=== PATIENT | male | born 1965 | race Caucasian/White ===

== ENCOUNTER 2018-05-03 10:33 | Emergency (ER) | payer OTHER, SELFPAY ==
[2018-05-03 10:36] VITALS: BP 123/78; PULSE 97; RESP 17; TEMP 36.9; O2SAT 93; BMI 34.4
--- NOTE | 2018-05-03 11:14 | EKG12_ITS ---
Test Reason : DIZZY Blood Pressure : / mmHG Vent. Rate : 098 BPM Atrial Rate : 098 BPM P-R Int : 144 ms QRS Dur : 098 ms QT Int : 352 ms P-R-T Axes : 011 013 043 degrees QTc Int : 449 ms Normal sinus rhythm Normal ECG Confirmed by KIRSTEN ARDON, CARA ([id number]), acquisition editor GAY ESPINOSA ([id number] on 05/08/2018 9:06:40 AM Referred By: DANNY/ANTOINE Confirmed By:CARA CURTIS MD
[2018-05-03 11:41] LABS: Absolute Neutrophil Count 6.9 X10^3/uL (2.0-7.7); Basophil# 0.03 X10^3/uL; Basophil% 0.3 % (0-1); Eosinophil# 0.21 X10^3/uL; Eosinophils% 2.1 % (0-5); Hematocrit 49.7 % (40-54); Hemoglobin 15.9 g/dl (13.0-16.5); Lymphocyte % 20.8 % (19-41); Mean Corpuscular Hgb 31.3 pg (27.0-32.0); Mean Corpuscular Volume 97.8 fL (80-94); Mean Platelet Vol. 10.5 fl (6.2-12.0); Monocyte# 0.85 X10^3/uL; Monocyte% 8.4 % (0-10); Neutrophil # 6.86 X10^3/uL (2.7-7.7); Neutrophil % 67.7 % (47-70); Platelet Count 246 K/mm3 (150-450); RBC Distribution Width CV 13.4 % (11.6-14.6); RBC Distribution Width SD 48.1 fl (35.1-43.9); Red Blood Count 5.08 M/mm3 (4.6-6.2); White Blood Count 10.1 K/mm3 (4.4-11.0)
[2018-05-03 11:42] LABS: POSITIVE COUNT NO; POSITIVE DIFFERENTIAL NO; POSITIVE MORPHOLOGY NO
--- NOTE | 2018-05-03 11:50 | RAD_ITS ---
STUDY: X-RAY CHEST REASON FOR EXAM: Male, 53 years old. Cough. Weakness/dizziness. TECHNIQUE: PA and lateral views of the chest. COMPARISON: Comparison is made with prior study dated February 03, 2016. FINDINGS: Since prior study, there has been progressive increased interstitial markings at the left lung base suggestive of a either early infiltrate and/or atelectasis superimposed on scarring. Stable appearance of the right lung base. Blunting of the left costophrenic angle. Calcified granulomas. Normal size heart. Normal mediastinum and luis. Normal visualized pulmonary arteries. Normal visualized aortic arch and descending thoracic aorta. There are diffuse degenerative changes of the visualized thoracic spine. Healed left rib fracture. There is no demonstrated abnormality of the visualized soft tissue structures of the upper abdomen. RAD/Chest PA and Lateral IMPRESSION: Progressive increased markings at the left lung base suggestive of either linear atelectasis and/or early infiltrate with blunting of left costophrenic angle. Electronically Signed: Gurvinder Cramer, at 12:30 EST , Service support ,
[2018-05-03 12:00] LABS: Anion Gap 7 (5-15); BUN 13 mg/dL (7-18); BUN/Creat Ratio 13.7 RATIO (10-20); Calcium,Total 8.8 mg/dL (8.5-10.1); Chloride 107 mmol/L (98-107); Creatinine, Serum 0.95 mg/dL (0.70-1.30); EST Glomerular Filtration Rate 87 mL/min (>60); Est Glom Filt Rate - Afr Amer 106 mL/min (>60); Estimated Creatinine Clearance 82.14 ml/min; Glucose 93 mg/dL (74-106); Sodium Level 140 mmol/L (136-145)
[2018-05-03 13:06] VITALS: BP 136/85; PULSE 93; RESP 18; O2SAT 92
[2018-05-03 13:07] VITALS: O2SAT 90
--- NOTE | 2018-05-03 13:13 | ED.VISSUMM ---
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 Went sat down using inhaler and felt a little bit better. States the inhaler was his bosses. He was treated last week for influenza return to work on April 27. He notes chronic headaches due to sinus issues. He is a smoker. Physical Examination: Afebrile vital signs stable Gen: Well-nourished well-developed Head: Normocephalic atraumatic Eyes: Perrl EOMI ENT: TMs clear no rhinorrhea moist mucous membranes Neck: Supple no lymphadenopathy no JVD nontender CVS: Regular rate rhythm no murmurs normal S1-S2 Respiratory: No distress rhonchi that improve with cough chest nontender Abdomen: Soft nontender nondistended normal bowel sounds no masses Back: Nontender Extremity: Nontender no edema Skin: Normal color no rash Neuro: alert orientated ?3 CN II-XII intact normal strength sensation reflexes gait cerebellar Psych: Normal affect normal mood Test Results: EKG demonstrates a sinus rhythm at a rate of 98. White count 10.1. Troponin negative. Chest x-ray shows a possible early left lingular infiltrate. Emergency Department Course and Treatment: I suspect that the patient has a post influenza pneumonia. I will place him on pro-air and doxycycline. He is 90% on room air and ambulates at 90%. He is advised to return if worsening or concerns. Impression: 1. Near syncope 2. Pneumonia This note was generated with [employer] dictation software. It may contain incorrect words, spelling, and punctuation that were not noted in review of the chart prior to signing ED Disposition - Plan for ED Patient: Disposition: Home or Assisted Living Instructions: ED Pneumonia Adult, ED Near Syncope Unkn Prescriptions: Albuterol Inhaler [Ventolin Hfa] 2 puff INHALATION Q4H PRN PRN #1 inhaler PRN Reason: Wheezing Doxycycline 100 mg PO BID #20 cap Referrals: Rey Shields MD [Primary Care Provider] - 3-5 Days if not improving
== END 2018-05-03 13:26 | disposition home or self-care (01) ==
PROVIDERS: Emergency Provider Emergency Medicine; Family Provider Family Medicine; PCP Family Medicine
DX: R55 Syncope and collapse (principal); J18.9 Pneumonia, unspecified organism; Z72.0 Tobacco use
CPT/HCPCS: 71046; 80048; 84484; 85025; 93005; 99285; A4216

== ENCOUNTER 2020-01-06 09:05 | Observation (INO) | payer OTHER, MEDICAID, SELFPAY ==
[2020-01-06] VITALS (11 sets, daily range): BP systolic 111–129; BP diastolic 60–87; PULSE 76–97; RESP 16–18; TEMP 36.2–36.9; O2SAT 91–97; BMI 37.5; BMI 37.1; BMI 37.2
--- NOTE | 2020-01-06 09:11 | EKG12_ITS ---
Test Reason : CP Blood Pressure : / mmHG Vent. Rate : 085 BPM Atrial Rate : 085 BPM P-R Int : 156 ms QRS Dur : 098 ms QT Int : 370 ms P-R-T Axes : 050 023 052 degrees QTc Int : 440 ms Normal sinus rhythm Normal ECG Confirmed by SURYA ARDON, BILL ([id number]), scientific editor CHENG FARIA ([id number]) on 01/08/2020 8:56:25 AM Referred By: BB Confirmed By:BILL LONDON MD
--- NOTE | 2020-01-06 09:25 | EKG12_ITS ---
Test Reason : CP ADMIT Blood Pressure : / mmHG Vent. Rate : 071 BPM Atrial Rate : 071 BPM P-R Int : 164 ms QRS Dur : 100 ms QT Int : 396 ms P-R-T Axes : 048 040 061 degrees QTc Int : 430 ms Normal sinus rhythm Normal ECG When compared with ECG of 03-MAY-2018 10:27, No significant change was found Confirmed by KIRSTEN ARDON, CARA ([id number]), industrial editor CHENG FARIA ([id number]) on 01/07/2020 11:11:37 AM Referred By: DIANA Confirmed By:CARA CURTIS MD
--- NOTE | 2020-01-06 09:26 | ED.VIS.CHEST ---
History of Present Illness Chief Complaint: Chest Pain Informant: Patient, EMS Onset: Hours - 2 Activity at onset: Light Activity - at work, grinding stuff Timing: Continuous Quality: Pressure Location: Substernal - w/o radiation Current Severity: Gone Maximum Severity: Severe Worsened By: Nothing. Not Worsened By: Breathing Relieved By: NTG Associated Symptoms: Diaphoresis, - - malaise. Negative for: Nausea, Vomiting, Dyspnea, Fever, Palpitations Narrative: 54-year-old male presenting with chest discomfort that started while he was at work. EMS performed an EKG looks similar to ours, after that they gave him aspirin 324 mg and 1 nitroglycerin, resulting in resolution of his chest discomfort and sweating. He has never had this before. He had a stress test maybe 25 years ago that was unremarkable, but nothing since. He sees his doctor regularly. Smoker. States he takes aspirin daily for sinus issues. Prior Similar Symptoms: No Recent Illness/Hospitalization: No CVD Risk Factors: Smoking. Negative for: Hypertension, Diabetes, Hypercholesterolemia, Family History 1' </=55 PE Risk Factors: Negative for: Recent Travel/Surgery, Recenet Immobilization, Prior DVT or PE, Cancer, OCP + Smoking + >/=35 - Past Medical History (1) GERD (gastroesophageal reflux disease) Status: Chronic (2) Arthritis of both knees Status: Chronic Past Medical History - Allergies and Home Meds Allergies/Adverse Reactions: Allergies strawberry Allergy (Verified 02/03/16 16:22) Anaphylaxis acetaminophen [From Darvocet-N] Adverse Reaction (Verified 05/03/18 10:35) Other BRADYCARDIA aspirin Adverse Reaction (Verified 02/03/16 16:22) Nausea/Vom/Diarrhea hydromorphone [From Dilaudid] Adverse Reaction (Verified 05/03/18 10:43) Other BRADYCARDIA Primary Care Physician: Rey Shields MD [Primary Care Provider] - Lives: Spouse/ Significant Other Smoking Status: Current every day smoker Drugs: None Review of Systems General: Reports: Malaise, Sweats. Denies: Chills, Fever Eyes: Denies: Visual changes - bilaterally, Diplopia ENT: Denies: Rhinorrhea, Sore throat Cardiovascular: Reports: Chest pain. Denies: Palpitations Respiratory: Denies: Dyspnea, Cough, Dyspnea on exertion Gastrointestinal: Denies: Abdominal pain, Nausea, Vomiting, Diarrhea, Melena, Hematochezia Genitourinary: Denies: Dysuria, Hematuria, Frequency Musculoskeletal: Denies: Back pain, Extremity Pain Skin: Denies: Rash, Wounds Neurological: Denies: Headache, Weakness, Numbness Physical Exam Vital Signs/Narrative: Vital Signs Temp Pulse Resp BP Pulse Ox 01/06/20 09:18 94 01/06/20 09:15 81 17 117/82 H 91 01/06/20 09:08 97.3 F L 80 17 123/81 H 93 Inital Vital Signs reviewed: Yes General: Well nourished, Well developed, Obese, No Acute Distress Head: Normocephalic, Atraumatic Eyes: Perrl, EOMI ENT: Moist mucous membranes, No rhinorrhea Neck: Supple, Nontender, No JVD Cardiovascular: Regular rate, Regular rhythm, No murmurs, - - Equal bilateral 2+/4 radial pulses Respiratory: No distress, CTA bilaterally, Chest nontender Abdomen: Soft, Nontender, Nondistended, Normal bowel sounds Back: Nontender, Normal Inspection Extremities: Nontender, No edema. Negative for: Calf Tenderness Skin: Normal color, No rash Neurological: Alert, Oriented x3, Cranial nerves II-XII grossly intact, Normal Strength, Normal Sensation Psychological: Normal affect, Normal Mood Diagnostic/Tx/Re-eval - Rhythm Strip Rhythm Strip: Sinus Rhythm Rate: 85 Ectopy: None - EKG Initial EKG Interpretation: Sinus Rhythm, No Acute Injury Pattern - Normal-appearing EKG Treatment: Aspirin - By EMS prior to arrival, NTG Topical Repeat Eval: Pain Free MAN Risk: ASA within 7 days Score: 1 - Medical Decision Making Concerning story for unstable angina. Enzymes are negative, EKG is unremarkable after the patient is pain-free, EMS EKG was reassuring as well. I think he should have a stress test prior to being discharged. Plan is for admission and observation for cardiac provocative testing. ED Disposition - Plan for ED Patient: Disposition: Acute Care Hospital [facility] Diagnosis: Chest pain, unspecified Referrals: Rey Shields MD [Primary Care Provider] -
[2020-01-06] MEDS: Nitroglycerin Oint 1 INCH PACKET TRANSDERM. (09:35)
[2020-01-06] MEDS: 0.9% Normal Saline 1,000 ML 200 ML IV (09:35)
[2020-01-06 09:40] LABS: Absolute Lymphocyte Count 1.49 X10^3/uL (0.83-4.51); Absolute Neutrophil Count 4.2 X10^3/uL (2.0-7.7); Basophil# 0.02 X10^3/uL; Basophil% 0.3 % (0-1); Eosinophil# 0.13 X10^3/uL; Lymphocyte # 1.49 X10^3/ul (4.0); Mean Corpuscular Hgb 31.1 pg (27.0-32.0); Mean Corpuscular Volume 97.1 fL (80-94); Mean Platelet Vol. 10.6 fl (6.2-12.0); Monocyte# 0.61 X10^3/uL; Monocyte% 9.4 % (0-10); NRBC Flagged by Analyzer 0 % (0-5); Neutrophil # 4.22 X10^3/uL (2.7-7.7); Platelet Count 234 K/mm3 (150-450); RBC Distribution Width CV 13.2 % (11.6-14.6); RBC Distribution Width SD 47.1 fl (35.1-43.9); Red Blood Count 5.15 M/mm3 (4.6-6.2); White Blood Count 6.5 K/mm3 (4.4-11.0)
--- NOTE | 2020-01-06 09:40 | RAD_ITS ---
STUDY: X-RAY CHEST REASON FOR EXAM: Male, 54 years old. Chest pain TECHNIQUE: Single AP portable view of the chest. COMPARISON: Comparison is made with prior study dated 05/03/2018. FINDINGS: EKG electrodes are seen. Stable increased interstitial markings at the lung bases with areas of confluence suggestive of scarring. There is no demonstrated pleural abnormality. Normal size heart. Normal mediastinum and luis. Normal visualized pulmonary arteries. Normal visualized aortic arch and descending thoracic aorta. There are diffuse degenerative changes of the visualized thoracic spine. Multiple healed left rib fractures. There is no demonstrated abnormality of the visualized soft tissue structures of the upper abdomen. RAD/Chest 1 View (Portable) IMPRESSION: Stable increased markings at the lung bases suggestive of scarring. Multiple healed left-sided rib fractures. Electronically Signed: Gurvinder Cramer, at 10:03 EST , Service support ,
[2020-01-06 09:56] LABS: Anion Gap 5 (5-15); BUN 15 mg/dL (7-18); BUN/Creat Ratio 15.6 RATIO (10-20); Calcium,Total 9.2 mg/dL (8.5-10.1); Chloride 108 mmol/L (98-107); Creatinine, Serum 0.96 mg/dL (0.70-1.30); EST Glomerular Filtration Rate 86 mL/min (>60); Est Glom Filt Rate - Afr Amer 104 mL/min (>60); Estimated Creatinine Clearance 80.33 ml/min; Glucose 102 mg/dL (74-106); Potassium 4.4 mmol/L (3.5-5.1); Sodium Level 142 mmol/L (136-145)
[2020-01-06 10:08] LABS: Partial Thromboplast Time 33.6 Seconds (24.1-36.2)
--- NOTE | 2020-01-06 11:23 | HP.PCM_ITS ---
Problem List (1) GERD (gastroesophageal reflux disease) Status: Chronic (2) Arthritis of both knees Status: Chronic (3) Chest pain, unspecified Status: Acute History of Present Illness Date of Admission: 01/06/20 Chief Complaint: Chest pain. The patient is a 54 year old M who presents emergency room due to chest pain. Patient reports a pressure-like pain which began around 7 this morning while he was at work. 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 Patient states he had associated nausea and felt hot. He denies pain radiation. Denies shortness of breath. His pain lasted until EMS arrived and he received aspirin and nitro. He is now pain-free. He denies history of heart disease. He is a current pack per day smoker. He has not had chest pain similar to this in the past. He has a past medical history of GERD, tobacco dependence, obesity. Past Medical History Past Medical History (Chronic Problems): Chronic Problems GERD (gastroesophageal reflux disease) (Chronic) Arthritis of both knees (Chronic) Allergies strawberry Allergy (Verified 02/03/16 16:22) Anaphylaxis acetaminophen [From Darvocet-N] Adverse Reaction (Verified 05/03/18 10:35) Other BRADYCARDIA aspirin Adverse Reaction (Verified 02/03/16 16:22) Nausea/Vom/Diarrhea hydromorphone [From Dilaudid] Adverse Reaction (Verified 05/03/18 10:43) Other BRADYCARDIA Home Medications: Ambulatory Orders Medication Instructions Recorded Aspirin [Aspirin, Baby] 81 mg PO DAILY@0800 01/06/20 Nexium 1 tab PO DAILY 01/06/20 Surgical History: - - Scrotal surgery x2 related to injury. Psychiatric History: No pertinent psych hx Lives: Spouse/ Significant Other Smoking Status: Current every day smoker Tobacco Use: Cigarettes - 1 pack/day Alcohol: None Drugs: None - *Family History Maternal History Items: Cancer Paternal History Items: - - Atrial fibrillation Review of Systems Constitutional: Denies: Chills, Fever, Weight Change HEENT: Denies: Head Aches, Sinus Congestion, Sinus Drainage Cardiovascular: Reports: Chest Pain, Chest Pressure. Denies: Edema, Light Headedness, Palpitations, Syncope Respiratory: Denies: Cough, Shortness of breath at rest, Sputum production Gastrointestinal: Denies: Abdominal Pain, Nausea, Vomiting Genitourinary: Denies: Dysuria Musculoskeletal: Denies: Joint Pain, Joint Tenderness Skin: Denies: Rash, Wounds Neurological: Denies: Numbness, Tingling, Focal weakness Psychiatric: Denies: Anxiety, Depression, Homicidal Ideations, Suicidal Ideations Hematologic/ Lymphatic: Denies: Easy Bruising, Easy Bleeding VTE Information - Inpt Only VTE Present on Admission: No VTE Mechan Device Prophylaxis: None VTE Pharm Prophylaxis ordered?: No Reason prophylaxis not ordered:: Treatment Not Indicated Patient Problems: Active and Suspected Problems Chest pain, unspecified (Acute) - Physical Exam Vitals/I&O's: Vital Signs Temp Pulse Resp BP Pulse Ox 97.2 F L 84 18 122/87 H 97 01/06/20 10:53 01/06/20 10:53 01/06/20 10:53 01/06/20 10:53 01/06/20 10:53 Oxygen Flow Rate (L/min) 2 Oxygen Delivery Method Nasal Cannula Weight: 237 lb 3.478 oz Body Mass Index (BMI) 37.1 Intake and Output for Last 24 Hours 01/04/20 01/05/20 01/06/20 23:59 23:59 23:59 Intake Total 350 / 350 Balance 350 / 350 General: Alert, Oriented x3, Cooperative HEENT: Atraumatic, PERRLA, EOMI, Normocephalic Neck: Supple, No JVD, Negative Carotid Bruits Lungs: Clear to auscultation, Normal air movement Cardiovascular: Regular rate, No murmurs Abdomen: Bowel Sounds Present, Soft, Non Tender, Non-Distended, Obese Extremities: No clubbing, No cyanosis, No edema, Capillary Refill Less than 3 Seconds Skin: No rashes, No breakdown Musculoskeletal: No Tenderness to Palpation of Joints or Extremities Neurological: Cranial nerves II-XII grossly intact, Neuro grossly intact Psych/Mental Status: Normal Affect, Appropriate Laboratory Results 01/06/20 09:25: WBC 6.5, RBC 5.15, Hgb 16.0, Hct 50.0, MCV 97.1 H, MCH 31.1, MCHC 32.0, RDW Std Deviation 47.1 H, RDW Coeff of [place]ago 13.2, Plt Count 234, MPV 10.6, Immature Gran % (Auto) 0.300, Neut % (Auto) 65.0, Lymph % (Auto) 23.0, Bradford % (Auto) 9.4, Eos % (Auto) 2.0, Baso % (Auto) 0.3, Absolute Neuts (auto) 4.2, Absolute Lymphs (auto) 1.49, Nucleated RBC % 0 01/06/20 09:25: APTT 33.6 01/06/20 09:25: Sodium 142, Potassium 4.4, Chloride 108 H, Carbon Dioxide 29.0, Anion Gap 5, BUN 15, Creatinine 0.96, Estim Creat Clear Calc 80.33, Est GFR (MDRD) Af Amer 104, Est GFR (MDRD) Non-Af 86, BUN/Creatinine Ratio 15.6, Glucose 102, Calcium 9.2, Troponin I < 0.015 Current Medications Acetaminophen (Acetaminophen 325 Mg Tablet) 650 mg PO Q6H PRN PRN PRN Reason: Pain Score 1-10/Temp > 100.7 F Aspirin (Aspirin 81 Mg Tab.Chew) 81 mg PO DAILY@0800 MAXINE Sodium Chloride () 500 mls @ 15 mls/hr IV PRN PRN PRN Reason: Blood Transfusion Sodium Chloride () 250 mls @ 15 mls/hr IV .[id number] PRN PRN Reason: Saline Flush Sodium Chloride () 250 mls @ 15 mls/hr IV .[id number] PRN PRN Reason: Additional IVPB Infusion Morphine Sulfate (Morphine 4 Mg/Ml Syringe) 4 mg IV Q3H PRN PRN PRN Reason: Pain Score 6-10 Pantoprazole Sodium (Pantoprazole Sodium 20 Mg Tablet) 20 mg PO DAILY MAXINE Sodium Chloride (0.9% Saline Lock 10 Ml Syringe) 10 - 40 ml IV UD PRN PRN Reason: SALINE FLUSH Assessment/Plan All Active Problems Chest pain, unspecified (Acute) 1. Chest pain-initial troponin negative. Trend enzymes. EKG without ST-T changes. Stress test in a.m. Continue aspirin. Lipid profile in a.m. 2. Tobacco dependence-encourage cessation. Declines nicotine replacement patch. 3. GERD-continue home Nexium regimen. 4. Obesity-encouraged diet lifestyle modifications. DVT prophylaxis-not indicated, early ambulation This patient was seen by MARY LOU Costello under the supervision of Dr. Martin.
[2020-01-07] VITALS (11 sets, daily range): BP systolic 127–145; BP diastolic 75–101; PULSE 66–99; RESP 18; TEMP 36.6–36.9; O2SAT 92–95
--- NOTE | 2020-01-07 05:50 | EKG12_ITS ---
Test Reason : AM EKG Blood Pressure : / mmHG Vent. Rate : 080 BPM Atrial Rate : 080 BPM P-R Int : 156 ms QRS Dur : 104 ms QT Int : 378 ms P-R-T Axes : 050 018 034 degrees QTc Int : 435 ms Normal sinus rhythm Normal ECG Confirmed by SURYA ARDON, BILL ([id number]), editor in chief CHENG FARIA ([id number]) on 01/08/2020 9:00:05 AM Referred By: DR ORTIZ Confirmed By:BILL LONDON MD
[2020-01-07] MEDS: Aspirin 81 MG TAB.CHEW PO (05:58)
--- NOTE | 2020-01-07 07:05 | CON.PCM_ITS ---
Reason for Consult Date of Consultation: 01/07/20 Reason for Consultation: Chest discomfort History of Present Illness: The patient is a 54 year old M with no previous cardiac history who presented to the emergency room yesterday after experiencing chest discomfort. It was described as a tightness across his chest. 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 He denied any dizziness or diaphoresis near syncope or syncope. He has not previously had any exertional chest discomfort. He does have some knee problems and does not think that he can perform a stress test. He does have a significant tobacco use history and a family history of coronary disease. In the emergency room he was noted to have normal sinus rhythm. His cardiac enzymes were thus far negative. [] Past Medical History Allergies/Adverse Reactions: Allergies strawberry Allergy (Verified 02/03/16 16:22) Anaphylaxis acetaminophen [From Darvocet-N] Adverse Reaction (Verified 05/03/18 10:35) Other BRADYCARDIA aspirin Adverse Reaction (Verified 02/03/16 16:22) Nausea/Vom/Diarrhea hydromorphone [From Dilaudid] Adverse Reaction (Verified 05/03/18 10:43) Other BRADYCARDIA Home Medications: Ambulatory Orders Medication Instructions Recorded Aspirin [Aspirin, Baby] 81 mg PO DAILY@0800 01/06/20 Nexium 1 tab PO DAILY 01/06/20 Vitamin B12 800 mcg PO DAILY 01/06/20 Past Medical History (Chronic Problems): Chronic Problems GERD (gastroesophageal reflux disease) (Chronic) Arthritis of both knees (Chronic) Surgical History: - - Scrotal surgery x2 related to injury. Psychiatric History: No pertinent psych hx - *Family History Maternal History Items: Cancer Paternal History Items: - - Atrial fibrillation Lives: Spouse/ Significant Other Smoking Status: Current every day smoker Tobacco Use: Cigarettes - 1 pack/day Alcohol: None Drugs: None Review of Systems - Review of Systems General: Denies: Fever, Night Sweats, Fatigue HEENT: Denies: Vision Change Cardiovascular: Reports: Chest Discomfort, Chest Discomfort at Rest, Chest Discomfort with Exertion, Chest Pressure Respiratory: Denies: Cough, Sputum Production, Hemoptysis Gastrointestinal: Denies: Hematemesis, Hematochezia, Melena Genitourinary: Denies: Dysuria, Hematuria Skin: Denies: Rash Psychiatric: Reports: Anxiety Endocrine: Denies: Heat Intolerance Hematologic/ Lymphatic: Denies: Anemia Subjectve: Pleasant gentleman in no distress Objective: Vital Signs Temp Pulse Resp BP Pulse Ox 98.4 F 84 18 138/78 H 95 01/07/20 03:15 01/07/20 06:37 01/07/20 03:15 01/07/20 03:15 01/07/20 03:15 Oxygen Flow Rate (L/min) 2 Oxygen Delivery Method Room Air Weight: 237 lb 3.478 oz Body Mass Index (BMI) 37.1 Intake and Output for Last 24 Hours 01/05/20 01/06/20 01/07/20 23:59 23:59 23:59 Intake Total 1150 / 1150 Balance 1150 / 1150 General: Awake, Alert, Oriented x 3 HEENT: PERRL, EOMI, Sclera Non Icteric Neck: Supple, Good ROM, No Lymph Node Enlargement Lungs: Clear to auscultation Cardiovascular: Regular Rhythm, Normal S1, Normal S2, No Murmurs, No Rubs, No Gallops Vascular: No Carotid Bruits, Normal Femoral Pulses, Normal Radial Pulses, Normal Dorsalis Pedal Pulse, Normal Posterior Tibial Pulses Abdomen: Bowel Sounds Present, Soft, Non Tender, No HSM, No Organomegaly Extremities: No Cyanosis, No Clubbing, No edema Musculoskeletal: No Erythema Skin: No Rashes Lymphatic: No Lymph Node Enlargement Neurological: No Focal Motor or Sensory Deficit Psych/Mental Status: Appropriate 01/06/20 09:25: WBC 6.5, RBC 5.15, Hgb 16.0, Hct 50.0, MCV 97.1 H, MCH 31.1, MCHC 32.0, Plt Count 234, MPV 10.6, Immature Gran % (Auto) 0.300, Neut % (Auto) 65.0, Lymph % (Auto) 23.0, Graves % (Auto) 9.4, Eos % (Auto) 2.0, Baso % (Auto) 0.3, Absolute Neuts (auto) 4.2, Nucleated RBC % 0 01/06/20 09:25: APTT 33.6 01/06/20 09:25: Sodium 142, Potassium 4.4, Chloride 108 H, Carbon Dioxide 29.0, Anion Gap 5, BUN 15, Creatinine 0.96, Est GFR (MDRD) Af Amer 104, Est GFR (MDRD) Non-Af 86, BUN/Creatinine Ratio 15.6, Glucose 102, Calcium 9.2, Troponin I < 0.015 01/06/20 12:18: Troponin I < 0.015 01/06/20 15:14: Troponin I < 0.015 Rhythm: EKG: Normal sinus rhythm with no acute changes ECHO: Stress Test: Cardiac Cath: PCI: CT Surgery: Holter monitor: EPS: PPM: CXR: Chest CT Scan: Assessment/Plan 1. Chest pain. * He does present with chest discomfort which is rather concerning for angina. He does not have any EKG changes or cardiac enzyme abnormality however he works in a high risk environment. I did discuss with him about performing a stress test versus going directly to a cardiac catheterization. I do not think that a pharmacologic stress test would offer the appropriate level of accuracy for diagnosing coronary disease. I would therefore recommend that we proceed with a cardiac catheterization. The risk benefits alternatives of been explained to him he understands and agrees to proceed. Depending on the findings further recommendations will be made. * * Thank you for allowing me to participate in the care of your patient. Please don't hesitate to call if any issues arise. * * * Addendum: At 1227. Cardiac catheterization performed which demonstrated normal coronary arteries. Would recommend discharge the patient for outpatient follow-up with primary physician and to seek for alternate sources of chest discomfort.
[2020-01-07 08:25] LABS: Cholesterol 214 mg/dL (200); High Density Lipoprotein 34 mg/dL; Triglycerides 219 mg/dL; Very Low Density Lipoprotein 44 mg/dL (5-40)
--- NOTE | 2020-01-07 09:21 | CASEMGMT ---
According to the MMO website, the following are in-network tertiary facilities: [facility], [facility], [facility], [facility], [facility], [facility], [facility], and . Juan SHAHID CM
--- NOTE | 2020-01-07 11:27 | NURSING ---
This RN called report to KLEBER Bowens in [employer].
--- NOTE | 2020-01-07 12:27 | CL.D_ITS ---
Patient Name: AZAM QUEEN Study Date: 01/07/2020 Performing: Howie Balderas MD Ht: 66.92 inches 170 cm : 1965 Wt: 238.1 lbs 108 kg Age: 54 Gender: male BSA: 2.18 PROCEDURE(S) PERFORMED FS76-CHG/COR/LV CLINICAL PROFILE AND INDICATIONS Indications: Suspected CAD Heart Failure: None Stress/Imaging Stress/Image Study Performed: No CAD Presentations: Unstable angina. CONCLUSIONS Normal coronary arteries Normal LV size, wall motion,and systolic function RECOMMENDATIONS Medical therapy DESCRIPTION OF PROCEDURE The patient arrived to the procedure lab. The risks and benefits of the procedure as well as a full d escription of our services here and current unavailability of surgical backup were fully explained to the patient and/or their significant other prior to the catheterization. The Timeout was completed, verifying the correct patient and procedure. The patient's procedural site was prepped and draped in the usual fashion. Local anesthetic was given subcutaneously to right radial region with Lidocaine 2% . Using a modified Seldinger technique, arterial access was obtained via the right radial artery, a 6 Fr sheath was inserted. Left Coronary Artery selective angiography was performed in multiple views u sing a 5 Fr. 4.0 S[place] catheter. Right Coronary Artery selective angiography was then performed in mu ltiple views using a 5 Fr. 4.0 [place] catheter. Left Ventriculography was performed in WATTS projection using a 5 Fr. Pigtail catheter. LV to AO pullback pressures were then recorded.The arterial sheath was pulled and a TR Band was applied for hemostasis CORONARY ANGIOGRAPHY DOMINANCE: Co- Dominant LEFT HEART ASSESSMENT Left Ventricular Ejection Fraction: by LV Gram 60 % Normal LV wall motion Normal Left Ventricular systolic function LEFT MAIN: Angiographically normal LEFT ANTERIOR DESCENDING ARTERY: Angiographically normal CIRCUMFLEX ARTERY: Angiographically normal RIGHT CORONARY ARTERY: Angiographically normal COMPLICATIONS No Complications PROCEDURE MEDICATIONS Fentanyl 50 mcg IV Versed 1 mg IV Versed 1 mg IV Versed 1 mg IV Oxygen: 2 L/min via nasal cannula Heparin diluted in 23cc Heparinized saline. Patient given 10cc IA of this solution. 01/07/2020 12:06 :46 Verapamil 2.5mg, Ntg 100mcgs, 2000 units of Heparin diluted in 23cc Heparinized saline. Patient give n 10cc IA of this solution. 01/07/2020 12:06:46 SUMMARY OF HEMODYNAMIC DATA Time AIR REST ECG 11:38:32 AO 118/88 (102) SA 12:10:58 LV 98/13, 20 12:18:26 LV 109/9, 16 12:18:33 LV 103/13, 17 12:19:05 LV 90/14, 18 12:19:12 LVp 107/13, 18 12:19:16 AOp 136/94 (115) 12:19:21 Signed By Howie Balderas MD On 01/07/2020 12:25:58 Howie Balderas MD
[2020-01-07] MEDS: Pantoprazole Sodium 20 MG Tablet PO (13:00)
--- NOTE | 2020-01-07 13:04 | DCINST_ITS ---
- Discharge Diagnoses Current Active Problems: Current Active and Chronic Problems GERD (gastroesophageal reflux disease) (Chronic) Arthritis of both knees (Chronic) Chest pain, unspecified (Acute) You will use the following diet at home:: Other - Low-fat/low-cholesterol Discharge Activity: Return to Normal Activity Call your doctor if you observe: Shortness of breath, Dizziness, Fainting spells, Chest pain Allergies/Adverse Reactions: Allergies strawberry Allergy (Verified 02/03/16 16:22) Anaphylaxis acetaminophen [From Darvocet-N] Adverse Reaction (Verified 05/03/18 10:35) Other BRADYCARDIA aspirin Adverse Reaction (Verified 02/03/16 16:22) Nausea/Vom/Diarrhea hydromorphone [From Dilaudid] Adverse Reaction (Verified 05/03/18 10:43) Other BRADYCARDIA Medications to take at Discharge Aspirin [Aspirin, Baby] 81 mg PO DAILY@0800 01/06/20 Nexium 1 tab PO DAILY 01/06/20 Vitamin B12 800 mcg PO DAILY 01/06/20 Primary Care Physician: Rey Shields MD [Primary Care Provider] - Please follow up with your Primary Care Physician in: 1 Week Test Results: Test results from this visit will be discussed in further detail at your follow- up appointment, if applicable. Proposed Discharge Date: 01/07/20
--- NOTE | 2020-01-07 13:05 | PCM.DC.SUM ---
Discharge Date and Diagnosis - Problem List Patient Problems: Active and Suspected Problems Chest pain, unspecified (Acute) Date of Admission: 01/06/20 Date of Discharge: 01/07/20 - Primary Discharge Diagnosis Acute Problems: Active Problems 1. Noncardiac chest pain 2. Tobacco dependence 3. GERD 4. Obesity 5. Hyperlipidemia - Secondary Discharge Diagnosis Chronic Problems: Chronic Problems GERD (gastroesophageal reflux disease) (Chronic) Arthritis of both knees (Chronic) Hospital Course and Treatment Imaging Results: Diagnostic Data Chest X-Ray 01/06/20 09:40 IMPRESSION: Stable increased markings at the lung bases suggestive of scarring. Multiple healed left-sided rib fractures. Electronically Signed: Gurvinder Cramer, at 10:03 EST , Service support , Dr. Balderas- Cardiology Operations: None Procedures: Cardiac catheterization Summary of Care Provided: The patient is a 54 year old M admitted 01/06/2020 due to chest pain. 1. Noncardiac chest pain-troponin negative. EKG without ST-T changes. Due to presenting symptoms concerning for unstable angina as well as risk factors including significant tobacco use history, obesity and family history, patient further underwent cardiac catheterization. Cardiac catheterization demonstrated normal coronary arteries. Follow-up with primary care provider in 1 week. 2. Tobacco dependence-encourage cessation. 3. GERD-continue home Nexium regimen. 4. Obesity-encouraged diet lifestyle modifications. 5. Hyperlipidemia-recommend dietary modifications and repeat lipid profile by primary care physician. General: Alert, Oriented x3, Cooperative HEENT: Atraumatic, PERRLA, EOMI, Normocephalic Neck: Supple, No JVD, Negative Carotid Bruits Lungs: Clear to auscultation, Normal air movement Cardiovascular: Regular rate, No murmurs Abdomen: Bowel Sounds Present, Soft, Non Tender, Non-Distended, Obese Extremities: No clubbing, No cyanosis, No edema, Capillary Refill Less than 3 Seconds Skin: No rashes, No breakdown Musculoskeletal: No Tenderness to Palpation of Joints or Extremities Neurological: Cranial nerves II-XII grossly intact, Neuro grossly intact Psych/Mental Status: Normal Affect, Appropriate Patient seen and examined prior to discharge. Physical assessment as noted above. Patient is stable for discharge with follow up recommendations as noted above. This patient was seen by MARY LOU Costello under the supervision of Dr. Martin. Patient Problems: Active and Suspected Problems Chest pain, unspecified (Acute) - Physical Exam Vitals/I&O's: Vital Signs Temp Pulse Resp BP Pulse Ox 97.8 F 81 18 127/88 H 93 01/07/20 13:02 01/07/20 13:02 01/07/20 13:02 01/07/20 13:02 01/07/20 13:02 Oxygen Flow Rate (L/min) 2 Oxygen Delivery Method Room Air Weight: 237 lb 3.478 oz Body Mass Index (BMI) 37.1 Intake and Output for Last 24 Hours 01/05/20 01/06/20 01/07/20 23:59 23:59 23:59 Intake Total 1150 / 1150 Balance 1150 / 1150 Laboratory Results 01/06/20 15:14: Troponin I < 0.015 01/07/20 07:41: Triglycerides 219 H, Cholesterol 214 H, LDL Cholesterol 136 H, VLDL Cholesterol 44 H, HDL Cholesterol 34 L Current Medications Acetaminophen (Acetaminophen 325 Mg Tablet) 650 mg PO Q6H PRN PRN PRN Reason: Pain Score 1-10/Temp > 100.7 F Aspirin (Aspirin 81 Mg Tab.Chew) 81 mg PO DAILY@0800 [facility] Last Admin: 01/07/20 05:58 Dose: 81 mg Documented by: Sodium Chloride () 500 mls @ 15 mls/hr IV PRN PRN PRN Reason: Blood Transfusion Sodium Chloride () 250 mls @ 15 mls/hr IV .[id number] PRN PRN Reason: Saline Flush Sodium Chloride () 250 mls @ 15 mls/hr IV .[id number] PRN PRN Reason: Additional IVPB Infusion Sodium Chloride () 1,000 mls @ 0 mls/hr IV .Q0M [facility] Morphine Sulfate (Morphine 4 Mg/Ml Syringe) 4 mg IV Q3H PRN PRN PRN Reason: Pain Score 6-10 Pantoprazole Sodium (Pantoprazole Sodium 20 Mg Tablet) 20 mg PO DAILY [facility] Last Admin: 01/07/20 13:00 Dose: 20 mg Documented by: Sodium Chloride (0.9% Saline Lock 10 Ml Syringe) 10 - 40 ml IV UD PRN PRN Reason: SALINE FLUSH Discharge Diet: Low fat/ Low Cholesterol Discharge Activity: Return to Normal Activity Call your doctor if you observe: Shortness of breath, Dizziness, Fainting spells, Chest pain Home Medications: Medications to take at Discharge Aspirin [Aspirin, Baby] 81 mg PO DAILY@0800 01/06/20 Nexium 1 tab PO DAILY 01/06/20 Vitamin B12 800 mcg PO DAILY 01/06/20 Primary Care Physician: Rey Shields MD [Primary Care Provider] - Please follow up with your Primary Care Physician in: 1 Week Disposition: Home Minutes spent on discharge:: 35 Patient Condition:: Stable Medical Necessity - Tobacco Use Smoking Status: Current every day smoker Tobacco Use: Cigarettes Meaningful Use Info Meaningful Use Diagnoses (Choose all that apply): None applicable
== END 2020-01-07 13:04 | disposition home or self-care (01) ==
LOC: ED 10:27 → PCU 10:36
PROVIDERS: Nurse Practitioner Family; Admitting Provider Internal Medicine; Emergency Provider Emergency Medicine; PCP Family Medicine; Visit Provider Internal Medicine
DX: R07.89 Other chest pain (principal); K21.9 Gastro-esophageal reflux disease without esophagitis; E78.5 Hyperlipidemia, unspecified; E66.9 Obesity, unspecified; Z68.37 Body mass index [BMI] 37.0-37.9, adult; Z79.899 Other long term (current) drug therapy; M17.0 Bilateral primary osteoarthritis of knee; F17.210 Nicotine dependence, cigarettes, uncomplicated; Z79.82 Long term (current) use of aspirin; Z82.49 Family history of ischemic heart disease and other diseases of the circulatory system
CPT/HCPCS: 36415; 71045; 80048; 80061; 84484; 85025; 85730; 93005; 93458; 96360; 96361; 99152; 99153; 99218; 99285; 99406; J7030; A4216; C1769; C1894; G0378; Q9967

== ENCOUNTER → 2020-02-10 15:19 | Outpatient (CLI) | payer OTHER, MEDICAID, SELFPAY ==
[2020-01-06 11:16] VITALS: BMI 37.1
--- NOTE | 2020-02-10 15:22 | CT_ITS ---
STUDY: CT RIGHT LOWER EXTREMITY REASON FOR EXAM: Right knee osteoarthritis, surgical planning. TECHNIQUE: Transaxial CT imaging of the extremity was performed. Coronal and sagittal images were reformatted. Individualized dose optimization techniques were used for this CT. COMPARISON: None. FINDINGS: Knee: Normal medial femoral condyle and medial tibial plateau. There are small marginal osteophytes, subchondral eburnation and severe joint space loss of the medial femorotibial compartment (coronal reconstructions 30-32). Normal lateral femoral condyle and lateral tibial plateau. There is preservation of the articular joint space of the lateral knee compartment. There are small marginal osteophytes without joint space narrowing of the patellofemoral articulation. Normal proximal tibiofibular articulation. There is a small joint effusion. The quadriceps tendon is grossly normal. The patellar tendon is grossly normal. There is mild enthesopathy of the patella. Normal Hoffa''s fat pad. There is mild vascular calcification. Hip: The hip joint space is well-preserved. Ankle: Normal tibiotalar, posterior subtalar, talonavicular and calcaneocuboid articulations. There are small posterior and plantar calcaneal enthesophytes (sagittal reconstructions 41, 42). CT/Extremity Lower without Contra IMPRESSION: Osteoarthritis of the medial femorotibial compartment. Small right knee joint effusion. Electronically Signed: Pietro Baltazar MD at 8:42 EST Tel , Service support ,
== END ==
PROVIDERS: PCP Family Medicine; Referring Provider Orthopaedic Surgery; Visit Provider Orthopaedic Surgery
DX: M17.11 Unilateral primary osteoarthritis, right knee (principal)
CPT/HCPCS: 73700

== ENCOUNTER 2020-02-17 07:20 | Day surgery (SDC) | payer OTHER, MEDICAID, SELFPAY ==
[2020-01-06 11:16] VITALS: BMI 37.1
--- NOTE | 2020-02-07 13:04 | EKG12_ITS ---
Test Reason : PRE OP Blood Pressure : / mmHG Vent. Rate : 097 BPM Atrial Rate : 097 BPM P-R Int : 148 ms QRS Dur : 108 ms QT Int : 362 ms P-R-T Axes : 055 032 056 degrees QTc Int : 459 ms Normal sinus rhythm Normal ECG Confirmed by SURYA ARDON, BILL ([id number]), managing editor THOMAS ORO ([id number]) on 02/13/2020 8:17:28 AM Referred By: Chan Barry Confirmed By:BILL LONDON MD
[2020-02-07 13:40] LABS: Absolute Lymphocyte Count 2.12 X10^3/uL (0.83-4.51); Absolute Neutrophil Count 5.3 X10^3/uL (2.0-7.7); Basophil# 0.05 X10^3/uL; Basophil% 0.6 % (0-1); Eosinophil# 0.16 X10^3/uL; Eosinophils% 1.9 % (0-5); Hematocrit 52.8 % (40-54); Hemoglobin 16.7 g/dL (13.0-16.5); Lymphocyte # 2.12 X10^3/ul (4.0); Lymphocyte % 24.7 % (19-41); Mean Corp Hgb Conc 31.6 g/dL (32-36); Mean Corpuscular Hgb 30.3 pg (27.0-32.0); Mean Corpuscular Volume 95.8 fL (80-94); Monocyte# 0.93 X10^3/uL; Monocyte% 10.8 % (0-10); NRBC Flagged by Analyzer 0 % (0-5); Neutrophil # 5.31 X10^3/uL (2.7-7.7); Neutrophil % 61.8 % (47-70); Platelet Count 252 K/mm3 (150-450); RBC Distribution Width CV 13.1 % (11.6-14.6); RBC Distribution Width SD 46.4 fl (35.1-43.9); Red Blood Count 5.51 M/mm3 (4.6-6.2); White Blood Count 8.6 K/mm3 (4.4-11.0)
[2020-02-07 14:05] LABS: Anion Gap 6 (5-15); BUN 17 mg/dL (7-18); BUN/Creat Ratio 15.5 RATIO (10-20); Chloride 104 mmol/L (98-107); EST Glomerular Filtration Rate 73 mL/min (>60); Est Glom Filt Rate - Afr Amer 89 mL/min (>60); Glucose 82 mg/dL (74-106); Potassium 3.6 mmol/L (3.5-5.1); Sodium Level 138 mmol/L (136-145)
[2020-02-07 14:16] LABS: Magnesium 1.8 mg/dL (1.6-2.6)
[2020-02-07 14:17] LABS: Hemoglobin A1c 6.2 % (3.8-5.6)
[2020-02-17] VITALS (12 sets, daily range): BP systolic 109–154; BP diastolic 72–91; PULSE 16–91; RESP 16; TEMP 35.8–36.6; O2SAT 93–99; BMI 37.0
--- NOTE | 2020-02-17 | KNEE_PTH ---
PATIENT: AZAM QUEEN [place] [facility] [id number] AGE/SX: 54/M ROOM: RE02/17/[address]: Dr. Chan Barry DO : 1965 BED: DIS: 02/17/2020 SPEC #: [id number] RECD: 02/17/20 12:56 STATUS: VICKY RELiz #: [id number] EDMUNDO: 02/17/20 00:[address]: Chan Barry DEPT: SURGICAL PATHOLOGY RECD BY: Waqas Rainey ENTERED: 02/17/20 12:56 SP TYPE: TOTAL KNEE OTHR DR: Dr. Rey Shields MD Tissues: Knee, NOS Procedures: Decalcification bone/plaque Surgery Specimen Level IV HEADER OPERATION: ERAS, total knee replacement robotic arm assist PRE-OP DIAGNOSIS: Primary osteoarthritis right knee TISSUE SUBMITTED: Bone and soft tissue right knee MICROSCOPIC DIAGNOSIS Bone and soft tissue, right knee, total knee replacement/resection: Pieces of bone with degenerative osteoarthritic changes. ANA:don 02/20/20 MICROSCOPIC DESCRIPTION Slides are reviewed. GROSS DESCRIPTION Received is one container designated bone and soft tissue right knee. The specimen consists of multiple fragments of calhoun-yellow bone measuring in aggregate 11 x 9 x 2.5 cm. No soft tissue is identified. A number of bony fragments contain articular surfaces consistent with tibial plateau and femoral condyle and displaying prominent osteophyte formation, eburnation, and bone erosion. Lock Plater sections are submitted in one cassette after decalcification. / ANA:don 02/17/20 TC:5 CPT: 46124, 95344
[2020-02-17] MEDS: Gabapentin 600 MG Tablet PO (07:30)
[2020-02-17] MEDS: Acetaminophen 500 MG Tablet 1000 MG PO ×2 (08:19→15:22)
[2020-02-17] MEDS: Lactated Ringers 1,000 ML 125 ML IV (08:20)
[2020-02-17 08:40] LABS: Bedside Glucose 73 mg/dL (70-110)
[2020-02-17] MEDS: Cefazolin 2 GM in 0.9% Normal Saline 100 ML IV (09:39)
--- NOTE | 2020-02-17 12:25 | RAD_ITS ---
STUDY: X-RAY - RIGHT KNEE REASON FOR EXAM: Postop right total knee arthroplasty. TECHNIQUE: 2 view(s) of the knee. COMPARISON: CT images 02/10/2020. FINDINGS: There is a right total knee arthroplasty without evidence of complication. There is postoperative gas in the soft tissues and overlying skin annabel. RAD/Knee 1 or 2 Views IMPRESSION: Uncomplicated right total knee arthroplasty. Electronically Signed: Pietro Baltazar MD at 12:52 EST Tel , Service support ,
--- NOTE | 2020-02-17 12:48 | OP.PCM_ITS ---
Report of Operation Date of Procedure: 02/17/20 Pre-Operative Diagnosis: OA Right knee Post-Operative Diagnosis: same Surgery/Procedure Performed:: Right TKR distributed generation project manager: Jen Hay NP Type of Anesthesia:: General Anesthesiologist: Jonah Shepard Specimen's removed: bone - Admit VTE Documentation VTE Present on Admission: No VTE Mechan Device Prophylaxis: SCD's, Thigh High KENNETH Hose VTE Pharm Prophylaxis ordered?: Yes
[2020-02-17 12:54] LABS: Hematocrit 47.9 % (40-54); Hemoglobin 15.7 g/dL (13.0-16.5); Mean Corp Hgb Conc 32.8 g/dL (32-36); Mean Corpuscular Volume 100.6 fL (80-94); Platelet Count 210 K/mm3 (150-450); RBC Distribution Width CV 13.3 % (11.6-14.6); RBC Distribution Width SD 49.1 fl (35.1-43.9); Red Blood Count 4.76 M/mm3 (4.6-6.2); White Blood Count 6.8 K/mm3 (4.4-11.0)
[2020-02-17 13:08] LABS: Anion Gap 4 (5-15); BUN 11 mg/dL (7-18); BUN/Creat Ratio 11.4 RATIO (10-20); Calcium,Total 8.1 mg/dL (8.5-10.1); Chloride 107 mmol/L (98-107); Creatinine, Serum 0.96 mg/dL (0.70-1.30); EST Glomerular Filtration Rate 86 mL/min (>60); Est Glom Filt Rate - Afr Amer 104 mL/min (>60); Estimated Creatinine Clearance 80.33 ml/min; Glucose 105 mg/dL (74-106); Potassium 4.6 mmol/L (3.5-5.1); Sodium Level 140 mmol/L (136-145)
== END 2020-02-17 16:17 | disposition home or self-care (01) ==
LOC: SDC 07:21 → AC 07:21
PROVIDERS: Anesthesiology; PCP Family Medicine; Referring Provider Orthopaedic Surgery; Visit Provider Orthopaedic Surgery
PROC: 0SRC0JZ Replacement of Right Knee Joint with Synthetic Substitute, Open Approach (ICD-10-PCS; CPT 27447; principal; 2020-02-17 09:00)
DX: M17.11 Unilateral primary osteoarthritis, right knee (principal); F17.210 Nicotine dependence, cigarettes, uncomplicated
CPT/HCPCS: 01402; 27447; S2900; 36415; 73560; 80048; 82962; 83036; 83735; 85025; 85027; 87081; 87426; 88305; 88311; 93005; 97161; C1776; C9803; J7120; J2405

== ENCOUNTER 2020-11-16 11:39 | Emergency (ER) | payer MEDICAID, SELFPAY ==
[2020-11-16 11:41] VITALS: BP 129/90; PULSE 100; RESP 20; TEMP 36.6; O2SAT 93; BMI 38.8
--- NOTE | 2020-11-16 13:32 | CT_ITS ---
STUDY: CT BRAIN WITHOUT CONTRAST REASON FOR EXAM: Male, 55 years old. One-week history of headache. RADIATION DOSAGE (If Supplied By Facility): CTDIvol = ( 38.43 ) mGy, DLP = ( 784.74 ) mGycm TECHNIQUE: Transaxial CT imaging of the brain was performed without administration of intravenous contrast material. Individualized dose optimization techniques were used for this CT. COMPARISON: No relevant priors. FINDINGS: Normal soft tissue structures. Normal calvarium. Normal size ventricles and extra-axial spaces for the patient''s age. Normal white matter tracts of the cerebral hemispheres. Normal basal ganglia and thalami. Normal brainstem. Normal cerebellum. There is no intracranial hemorrhage. There are no findings of an acute ischemic infarction. Normal visualized paranasal sinuses. CT/Brain/Head without Contrast IMPRESSION: Normal unenhanced CT scan of the brain. Electronically Signed: Gurvinder Cramer MD at 13:50 EDT , Service support ,
[2020-11-16] MEDS: 0.9% Normal Saline 1,000 ML 999 ML IV (13:47)
[2020-11-16] MEDS: Metoclopramide 10 MG/2 ML Vial IV (13:48)
[2020-11-16] MEDS: DiphenhydrAMINE 50 MG/ML Syringe 25 MG IV (13:48)
[2020-11-16] MEDS: Ketorolac 30 MG/ML Syringe IV (13:48)
--- NOTE | 2020-11-16 15:08 | EX.ED.VIS.HA ---
HPI History of Present Illness Chief Complaint: Headache Narrative Narrative: Patient is a 55-year-old male who states he has had approximate 5 to 7 days of headache. He denies any trauma prior to the headache beginning. He states that the headache came on gradually increase over the course of hours. He reports that he does have mild light and noise sensitivity. He denies any true history of headache but states that as the headache has not resolved on its own he presents for evaluation [facility] Medical History Arthritis of both knees GERD (gastroesophageal reflux disease) Nicotine dependence Home Medications Nexium 40 mg PO DAILY 01/06/20 [History Last Taken 02/17/20] Vitamin B12 800 mcg PO DAILY 01/06/20 [History Last Taken Unknown] aspirin 81 mg PO DAILY@0800 01/06/20 [History Last Taken Unknown] Allergy/AdvReac Type Severity Reaction Status Date / Time strawberry Allergy Anaphylaxis Verified 11/16/20 12:31 acetaminophen AdvReac Other Verified 11/16/20 12:31 [From Darvocet-N] aspirin AdvReac Nausea/Vom/ Verified 11/16/20 12:31 Diarrhea hydromorphone [From Dilaudid] AdvReac Other Verified 11/16/20 12:31 Family History (Updated 01/10/20 @ 17:29 by Megan Camacho) Father Heart disease Mother Cancer Surgical History History of left heart catheterization (01/07/20) scrotal surgery Social History Smoking Status: Current every day smoker tobacco type: cigarettes and smokeless tobacco ROS ROS ED Constitutional Constitutional ED: Denies chills or fever(s) Eyes Eyes: Denies blurry vision or diplopia ENT ENT ED: Denies sore throat Cardiovascular Cardiovascular: Denies chest pain Respiratory/Chest Respiratory/Chest: Denies cough or dyspnea Gastrointestinal Gastrointestinal: Reports nausea; Denies abdominal pain, diarrhea or vomiting Genitourinary Genitourinary ED: Denies dysuria Musculoskeletal Musculoskeletal: Denies myalgias Integumentary Denies rash Neurologic Neurologic: Reports headache(s); Denies paresthesias or weakness Hematologic/Lymphatic Hematologic/Lymphatic: Denies easy bleeding or easy bruising EXAM Physical Exam Const Vital Signs: 11/16/20 11:41 Temperature 97.8 F Temperature Source Temporal Pulse Rate 100 Respiratory Rate 20 H Blood Pressure 129/90 H Blood Pressure Mean 103 Pulse Ox 93 Oxygen Delivery Method Room Air Positive well nourished and well developed General Appearance ED: well developed HEENT Reports TM's clear and moist mucous membranes Tympanic Membrane ED: Yes TM's clear Eyes PERRL and EOMs intact bilaterally Neck supple and no meningeal signs Resp normal respiratory effort and clear to auscultation bilaterally Cardio regular rate and regular rhythm GI non-tender and non-distended Auscultation: normoactive bowel sounds Palpation: soft Extremity normal to inspection Neuro oriented x3 and CN's II-XII intact bilaterally Neuro Narrative: Cranial nerves II through XII are grossly intact there are no focal neurologic deficits. No pronator drift no dysmetria no truncal ataxia Sensorium / Orientation: awake and alert Psych mental status grossly normal Skin no rashes or lesions noted Rashes: no rashes MDM MDM MDM Narrative Medical decision making narrative: Patient presented to the ER mildly hypertensive but otherwise had a normal neurologic exam and no report or signs of trauma. He also had no signs of infection such as meningitis to account for his symptoms. Therefore I felt no need for laboratory studies but as patient's not had a headache like this for multiple years I did perform a noncontrast CT. CT revealed no acute findings after treatment with IV fluids Toradol Benadryl and Reglan patient did report resolution of his headache. On reevaluation his neuro exam remains normal and therefore with resolution of symptoms and negative work-up he is safe for discharge Radiography Diagnostic Testing: Radiology Impression Brain CT 11/16/20 13:32 IMPRESSION: Normal unenhanced CT scan of the brain. Electronically Signed: Gurvinder Cramer MD at 13:50 EDT , Service support , Discharge Plan Triage Chief Complaint: Headache ED Provider: Chaparro Arvizu Dx/Rx/DC Orders Clinical Impression: Cephalgia Instructions: ED Headache Unspecified Prescriptions: No Action aspirin 81 MG tablet,chewable 81 mg PO DAILY@0800 RF: 0 Nexium 1 TAB 40 mg PO DAILY RF: 0 Vitamin B12 800 mcg PO DAILY RF: 0 Primary Care Provider: Rey Shields Referrals: Rey Shields MD [Primary Care Provider] - Disposition Disposition: Home, Self Care
[2020-11-16 15:23] VITALS: BP 128/90; PULSE 91; RESP 16; O2SAT 96
== END 2020-11-16 15:25 | disposition home or self-care (01) ==
PROVIDERS: Emergency Provider Emergency Medicine; PCP Family Medicine
DX: R51.9 Headache, unspecified (principal); F17.210 Nicotine dependence, cigarettes, uncomplicated; K21.9 Gastro-esophageal reflux disease without esophagitis; Z79.82 Long term (current) use of aspirin
CPT/HCPCS: 70450; 96361; 96374; 96375; 99283